=== PATIENT | male | born 1970 | race Caucasian/White ===

== ENCOUNTER 2016-10-30 17:46 | Emergency (ER) | payer BC ==
[2016-10-30 18:07] VITALS: TEMP 98.2
[2016-10-30] MEDS ORDERED: methylPREDNISolone SOD SUCCI 125 MG/2 ML VIAL IM STA (18:41)
[2016-10-30] MEDS ORDERED: FAMOTIDINE 20 MG TAB PO STA (18:41)
[2016-10-30 19:49] VITALS: BP 132/71; PULSE 72; RESP 16
--- NOTE | 2016-10-30 19:58 | ED ---
General Adult HPI - General Chief complaint: Allergic Reaction Stated complaint: Bee Sting/epi-pen/allergic Time Seen by Provider: 10/30/16 18:34 Source: patient, RN notes reviewed Mode of arrival: ambulatory Limitations: no limitations - History of Present Illness Initial comments: Patient 45-year-old male who presents emergency room today with a chief complaint of a bee sting that occurred just prior to arrival. Patient does admit to a ALLERGY to bees. He states he believes it was a hornet. He states that he did take his ibuprofen. He does admit some itching to the bottom of his foot. States he also took 2 tabs of Benadryl prior to arrival. Patient denies any other complaints or symptoms at this time. Patient denies any recent fever, chills, shortness of breath, chest pain, back pain, abdominal pain, nausea or vomiting, numbness or tingling, dysuria or hematuria, constipation or diarrhea, headaches or visual changes, or any other complaints. - Related Data Home Medications Medication Instructions Recorded Confirmed EPINEPHrine [Epipen 2-Domo] 0.3 mg IM ONCE PRN 10/30/16 10/30/16 Previous Rx's Medication Instructions Recorded EPINEPHrine [Epipen 2-Domo] 0.3 mg IM ONCE PRN #1 ml 10/30/16 Famotidine [Pepcid] 20 mg PO BID #20 tablet 10/30/16 diphenhydrAMINE [Benadryl] 1 - 2 tab PO Q6HR PRN #30 capsule 10/30/16 predniSONE 60 mg PO DAILY 5 Days 10/30/16 Allergies Allergy/AdvReac Type Severity Reaction Status Date / Time venom-honey bee Allergy Anaphylaxis Verified 10/30/16 18:07 [bee venom (honey bee)] Review of Systems ROS Statement: Those systems with pertinent positive or pertinent negative responses have been documented in the HPI. ROS Other: All systems not noted in ROS Statement are negative. Past Medical History Past Medical History: No Reported History History of Any Multi-Drug Resistant Organisms: None Reported Past Surgical History: No Surgical Hx Reported Past Psychological History: No Psychological Hx Reported Smoking Status: Never smoker Past Alcohol Use History: Occasional Past Drug Use History: None Reported General Exam - General Exam Comments Initial Comments: General: The patient is awake and alert, in no distress, and does not appear acutely ill. Eye: Pupils are equal, round and reactive to light, extra-ocular movements are intact. No nystagmus. There is normal conjunctiva bilaterally. No signs of icterus. Ears, nose, mouth and throat: There are moist mucous membranes and no oral lesions. Neck: The neck is supple, there is no tenderness or JVD. Cardiovascular: There is a regular rate and rhythm. No murmur, rub or gallop is appreciated. Respiratory: Lungs are clear to auscultation, respirations are non-labored, breath sounds are equal. No wheezes, stridor, rales, or rhonchi. Musculoskeletal: Normal ROM, no tenderness. Strength 5/5. Sensation intact. Pulses equal bilaterally 2+. Neurological: A&O x 3. CN II-XII intact, There are no obvious motor or sensory deficits. Coordination appears grossly intact. Speech is normal. Skin: Skin is warm and dry and no rashes or lesions are noted. Psychiatric: Cooperative, appropriate mood & affect, normal judgment. Limitations: no limitations Course Vital Signs 10/30/16 10/30/16 18:05 19:49 Temperature 98.2 F Pulse Rate 80 72 Respiratory 20 16 Rate Blood Pressure 132/90 132/71 O2 Sat by Pulse 98 100 Oximetry Medical Decision Making - Medical Decision Making Patient reexamined at this time after being given steroids and Pepcid here in the emergency room. Has no complaints. Feeling well. Will be discharged home given a prescription for EpiPen, and steroids. Advised to follow-up family doctor return here to the emergency room for any symptoms increase or worsen appropriate concerns. Disposition Clinical Impression: Allergic reaction to insect sting Disposition: HOME SELF-CARE Condition: Good Instructions: Anaphylaxis (ED) Additional Instructions: Please use medication as discussed. Please follow-up with family doctor in the next 2 days of symptoms have not improved. Please return to emergency room if the symptoms increase or worsen or for any other concerns. Prescriptions: diphenhydrAMINE [Benadryl] 1 - 2 tab PO Q6HR PRN #30 capsule PRN Reason: Allergic Reaction EPINEPHrine [Epipen 2-Domo] 0.3 mg IM ONCE PRN #1 ml PRN Reason: Allergic Reaction Famotidine [Pepcid] 20 mg PO BID #20 tablet predniSONE 60 mg PO DAILY 5 Days Referrals: None,Stated [Primary Care Provider] - 1-2 days Time of Disposition: 19:57
== END 2016-10-30 20:06 | disposition home or self-care (01) ==
LOC: EC 17:46
DX: T63.441A Toxic effect of venom of bees, accidental (unintentional), initial encounter (principal); Z91.030 Bee allergy status
CPT/HCPCS: 99283 ×2; 96372 ×2; J2930

== ENCOUNTER 2020-07-05 02:48 | Inpatient (IN) | payer BC ==
[2020-07-05] MEDS ORDERED: DEXAMETHASONE SOD PHOSPHATE 10 MG/ML 1 ML VIAL IV STA (02:53)
[2020-07-05] MEDS ORDERED: KETOROLAC 15 MG/ML 1 ML VIAL IVP STA (02:53)
[2020-07-05] MEDS ORDERED: ACETAMINOPHEN TAB 500 MG TAB PO STA (02:53)
[2020-07-05] MEDS ORDERED: SODIUM CHLORIDE 0.9% 1,000 ML IV STA (02:53)
--- NOTE | 2020-07-05 02:54 | ED ---
Recheck HPI - General Chief Complaint: Shortness of Breath Stated Complaint: +Covid,SOB Time Seen by Provider: 07/05/20 02:52 Source: patient Mode of arrival: ambulatory Limitations: no limitations - Related Data Home Medications Medication Instructions Recorded Confirmed EPINEPHrine [Epipen 2-Domo] 0.3 mg IM ONCE PRN 10/30/16 10/30/16 Previous Rx's Medication Instructions Recorded EPINEPHrine [Epipen 2-Domo] 0.3 mg IM ONCE PRN #1 ml 10/30/16 Famotidine [Pepcid] 20 mg PO BID #20 tablet 10/30/16 diphenhydrAMINE [Benadryl] 1 - 2 tab PO Q6HR PRN #30 capsule 10/30/16 predniSONE [Deltasone] 60 mg PO DAILY 5 Days tab 10/30/16 Allergies Allergy/AdvReac Type Severity Reaction Status Date / Time venom-honey bee Allergy Anaphylaxis Verified 07/05/20 02:53 [bee venom (honey bee)] Review of Systems ROS Statement: Those systems with pertinent positive or pertinent negative responses have been documented in the HPI. ROS Other: All systems not noted in ROS Statement are negative. Past Medical History Past Medical History: No Reported History History of Any Multi-Drug Resistant Organisms: None Reported Past Surgical History: No Surgical Hx Reported Past Psychological History: No Psychological Hx Reported Smoking Status: Never smoker Past Alcohol Use History: Occasional Past Drug Use History: None Reported General Exam Limitations: no limitations Course Vital Signs 07/05/20 07/05/20 02:49 03:21 Temperature 102.5 F H Pulse Rate 104 H Respiratory 24 25 H Rate Blood Pressure 135/98 O2 Sat by Pulse 93 L Oximetry Medical Decision Making - Lab Data Result diagrams: 07/05/20 03:07 07/05/20 03:07 Lab Results 07/05/20 07/05/20 07/05/20 Range/Units 03:07 03:07 03:07 WBC 8.9 (3.8-10.6) k/uL RBC 4.78 (4.30-5.90) m/uL Hgb 14.8 (13.0-17.5) gm/dL Hct 41.8 (39.0-53.0) % MCV 87.6 (80.0-100.0) fL MCH 31.0 (25.0-35.0) pg MCHC 35.4 (31.0-37.0) g/dL RDW 12.3 (11.5-15.5) % Plt Count 220 (150-450) k/uL MPV 8.0 Neutrophils % 88 % Lymphocytes % 6 % Monocytes % 5 % Eosinophils % 0 % Basophils % 0 % Neutrophils # 7.8 H (1.3-7.7) k/uL Lymphocytes # 0.5 L (1.0-4.8) k/uL Monocytes # 0.4 (0-1.0) k/uL Eosinophils # 0.0 (0-0.7) k/uL Basophils # 0.0 (0-0.2) k/uL Sodium 134 L (137-145) mmol/L Potassium 4.5 (3.5-5.1) mmol/L Chloride 98 (98-107) mmol/L Carbon Dioxide 23 (22-30) mmol/L Anion Gap 13 mmol/L BUN 21 H (9-20) mg/dL Creatinine 0.82 (0.66-1.25) mg/dL Est GFR (CKD-EPI)AfAm >90 (>60 ml/min/1.73 sqM) Est GFR (CKD-EPI)NonAf >90 (>60 ml/min/1.73 sqM) Glucose 198 H (74-99) mg/dL Plasma Lactic Acid [place] 1.3 (0.7-2.0) mmol/L Calcium 9.0 (8.4-10.2) mg/dL Magnesium 1.7 (1.6-2.3) mg/dL Total Bilirubin 0.5 (0.2-1.3) mg/dL AST 39 (17-59) U/L ALT 31 (4-49) U/L Alkaline Phosphatase 95 (38-126) U/L Lactate Dehydrogenase 715 H (313-618) U/L Total Protein 7.4 (6.3-8.2) g/dL Albumin 4.2 (3.5-5.0) g/dL - EKG Data -: EKG Interpreted by Me (EKG is sinus tachycardia 104 OR 152 QRS 92 QTC 439) Disposition Clinical Impression: Fever, Coronavirus infection, Pneumonia due to COVID-19 virus Disposition: ADMITTED IP TO THIS HOSP Condition: Fair Is patient prescribed a controlled substance at d/c from ED?: No Referrals: None,Stated [Primary Care Provider] - 1-2 days
--- NOTE | 2020-07-05 03:45 | XR ---
EXAM: XR Chest, 1 View CLINICAL HISTORY: ITS.REASON XR Reason: Suspected COVID-19 pneumonia TECHNIQUE: Frontal view of the chest. COMPARISON: None FINDINGS: Hardware: None. Lungs/pleura: Patchy opacities bilaterally. No pleural effusion or pneumothorax. Heart/mediastinum: Normal. No cardiomegaly. Soft tissues: Unremarkable. Bones: No acute fracture. Upper abdomen: Normal. IMPRESSION: Patchy opacities bilaterally, concerning for an infectious/inflammatory process such as Covid 19 infection.
[2020-07-05 03:46] LABS: Basophils % (A) 0 %; Eosinophils % (A) 0 %; HCT 41.8 % (39.0-53.0); HGB 14.8 gm/dL (13.0-17.5); Lymphocytes # (A) 0.5 k/uL (1.0-4.8); Lymphocytes % (A) 6 %; MCHC 35.4 g/dL (31.0-37.0); MCV 87.6 fL (80.0-100.0); Monocytes # (A) 0.4 k/uL (0-1.0); Monocytes % (A) 5 %; Neutrophils # (A) 7.8 k/uL (1.3-7.7); Neutrophils % (A) 88 %; Platelet Count 220 k/uL (150-450); RBC 4.78 m/uL (4.30-5.90); RDW 12.3 % (11.5-15.5); WBC 8.9 k/uL (3.8-10.6)
[2020-07-05 03:47] LABS: ALT 31 U/L (4-49); AST 39 U/L (17-59); African American GFR (CKD) >90 (>60 ml/min/1.73 sqM); Albumin 4.2 g/dL (3.5-5.0); Alkaline Phosphatase 95 U/L (38-126); Anion Gap 13 mmol/L; Blood Urea Nitrogen 21 mg/dL (9-20); Carbon Dioxide 23 mmol/L (22-30); Chloride 98 mmol/L (98-107); Glucose 198 mg/dL (74-99); LDH 715 U/L (313-618); Magnesium 1.7 mg/dL (1.6-2.3); Non-African American GFR(CKD) >90 (>60 ml/min/1.73 sqM); Potassium 4.5 mmol/L (3.5-5.1); Sodium 134 mmol/L (137-145); Total Bilirubin 0.5 mg/dL (0.2-1.3); Total Protein 7.4 g/dL (6.3-8.2)
[2020-07-05] MEDS ORDERED: NALOXONE 0.4 MG/ML 1 ML VIAL IV PRN (04:02)
[2020-07-05] MEDS ORDERED: MORPHINE SULFATE 4 MG/ML SYRINGE IV PRN (04:02)
[2020-07-05] MEDS ORDERED: IBUPROFEN 400 MG TAB PO PRN (04:02)
[2020-07-05] MEDS ORDERED: ONDANSETRON 4 MG/2 ML VIAL IVP PRN (04:02)
[2020-07-05 04:06] LABS: Partial Thromboplastin Time 22.9 sec (22.0-30.0); Prothrombin Time 10.4 sec (9.0-12.0)
[2020-07-05 04:43] LABS: C Reactive Protein 142.8 mg/L (<10.0)
--- NOTE | 2020-07-05 05:34 | P.HPIM ---
History of Present Illness H&P Date: 07/05/20 Chief Complaint: difficulty breathing 49 year old male with no significant past medical history Patient comes in due to difficulty breathing he was diagnosed with covert pn eumonia on Thursday at [facility] in [place]. He was started on Medrol Dosepak and was given some nebulizers in the clinic. He claims that his symptoms started back in June 22 they were of mild symptoms initially he caught the disease from his and daughter who were only sick for a few days and he got better however his symptoms lingered and advanced to more severe shortness of breath fevers chills generalized body aches and diarrhea. He denies any hemoptysis denies any chest pain denies any dizziness or syncope. He denies any recent travel hospitalization. He denies any history of blood clots Today upon arrival to the ED he was found to be hypoxic and febrile and tachycardic. Chest x-ray showed patchy opacities. Patient admitted for further care and monitoring Review of Systems Pertinent positives as noted in HPI. All other systems were reviewed and are negative Past Medical History Past Medical History: No Reported History History of Any Multi-Drug Resistant Organisms: None Reported Past Surgical History: No Surgical Hx Reported Past Psychological History: No Psychological Hx Reported Smoking Status: Never smoker Past Alcohol Use History: Occasional Past Drug Use History: None Reported Medications and Allergies Home Medications Medication Instructions Recorded Confirmed Type EPINEPHrine [Epipen 2-Domo] 0.3 mg IM ONCE PRN 10/30/16 10/30/16 History EPINEPHrine [Epipen 2-Domo] 0.3 mg IM ONCE PRN #1 ml 10/30/16 Rx Famotidine [Pepcid] 20 mg PO BID #20 tablet 10/30/16 Rx diphenhydrAMINE [Benadryl] 1 - 2 tab PO Q6HR PRN #30 capsule 10/30/16 Rx predniSONE [Deltasone] 60 mg PO DAILY 5 Days tab 10/30/16 Rx Allergies Allergy/AdvReac Type Severity Reaction Status Date / Time venom-honey bee Allergy Anaphylaxis Verified 07/05/20 02:53 [bee venom (honey bee)] Physical Exam Vitals: Vital Signs Temp Pulse Resp BP Pulse Ox 07/05/20 03:21 25 H 07/05/20 02:49 102.5 F H 104 H 24 135/98 93 L Intake and Output 07/04/20 07/04/20 07/05/20 14:59 22:59 06:59 Other: Weight 120.202 kg Constitutional: No acute distress, conversant, pleasant Eyes: Anicteric sclerae, moist conjunctiva, Pupils equal round reactive to light ENMT: NC/AT Oropharynx clear, no erythema, or exudates Neck: Supple, FROM, no masses, or JVD No carotid bruits No thyromegaly Lungs: Clear to auscultation Clear to percussion Normal respiratory effort, no accessory muscle use Cardiovascular: Heart regular in rate and rhythm, No murmurs, gallops, or rubs No peripheral edema Abdominal: Soft Nontender, no guarding, rebound or rigidity Abdomen moving with respiration Normoactive bowel sounds No hepatomegaly, No splenomegaly No palpable mass No abdominal wall hernia noted Skin: Normal temperature, tone, texture, turgor No induration No subcutaneous nodules No rash, lesions No ulcers Extremities: No digital cyanosis No clubbing Pedal pulses intact and symmetrical Radial pulses intact and symmetrical No calf tenderness Psychiatric: Alert and oriented to person, place and time Appropriate affect fair judgement Neuro Muscles Strength 5/5 in all 4 extremities Sensation to light touch grossly present throughout Cranial nerves II-XII grossly intact No focal sensory deficits Lymphatics: no palpable cervical or supraclavicular , or inguinal lymph nodes Results CBC & Chem 7: 07/05/20 03:07 07/05/20 03:07 Labs: Abnormal Lab Results - Last 24 Hours (Table) 07/05/20 07/05/20 Range/Units 03:07 03:07 Neutrophils # 7.8 H (1.3-7.7) k/uL Lymphocytes # 0.5 L (1.0-4.8) k/uL Sodium 134 L (137-145) mmol/L BUN 21 H (9-20) mg/dL Glucose 198 H (74-99) mg/dL Lactate Dehydrogenase 715 H (313-618) U/L Assessment and Plan Assessment: Acute hypoxic respiratory failure COV ID pneumonitis Plan Supportive care Gentle IV fluid hydration Supplemental oxygen as needed Decadron IV Lovenox subcu Follow-up inflammatory markers d-dimer, LDH, CRP, ferritin Pulmonary consult CODE STATUS: Full code DVT prophylaxis: Lovenox Discussed with: Patient, ER, Anticipated length of stay >than [address]: Home A total of 65 minutes was spent on the care of this complex patient more than 50% of the time was spent in counseling and care coordination.
--- NOTE | 2020-07-05 08:40 | P.PN ---
Subjective Progress Note Date: 07/05/20 Patient was examined today continue dexamethasone oxygen. D-dimer unremarkable. Objective - Vital Signs Vital signs: Vital Signs Temp 99.6 F 07/05/20 03:52 Pulse 81 07/05/20 06:47 Resp 20 07/05/20 06:47 BP 139/92 07/05/20 06:47 Pulse Ox 95 07/05/20 08:03 Intake & Output 07/04/20 07/05/20 07/05/20 18:59 06:59 18:59 Weight 120.202 kg - Labs CBC & Chem 7: 07/05/20 03:07 07/05/20 03:07 Labs: Abnormal Lab Results - Last 24 Hours (Table) 07/05/20 07/05/20 Range/Units 03:07 03:07 Neutrophils # 7.8 H (1.3-7.7) k/uL Lymphocytes # 0.5 L (1.0-4.8) k/uL Sodium 134 L (137-145) mmol/L BUN 21 H (9-20) mg/dL Glucose 198 H (74-99) mg/dL Lactate Dehydrogenase 715 H (313-618) U/L C-Reactive Protein 142.8 H (<10.0) mg/L
[2020-07-05] MEDS: ENOXAPARIN 40 MG/0.4 ML SYRINGE SQ SCH (09:40)
[2020-07-05] MEDS: DEXAMETHASONE SOD PHOSPHATE 10 MG/ML 1 ML VIAL IV SCH (09:40)
[2020-07-05] MEDS: SODIUM CHLORIDE 0.9% 1,000 ML IV SCH ×2 (09:43→16:41)
--- NOTE | 2020-07-05 12:55 | P.CNPUL ---
History of Present Illness Consult date: 07/05/20 Requesting physician: Dick Blackman Reason for consult: dyspnea, cough, hypoxemia, abnormal CXR/CT Chief complaint: Shortness of breath, cough, fatigue, hypoxia, fever History of present illness: 49-year-old white male patient who presented to the emergency department on 07/05/2020 to the emergency department with symptoms of worsening shortness of breath, fever, cough. Patient symptoms started on 06/22/2020 initially with fatigue, some mild cough, body aches, decreased appetite, nausea, and diarrhea. Patient states his and daughter are also positive for quit 19, his daughter is in the cheerleading team and was recently in a state event, and half of the cheerleading team is now COVID positive. Patient symptoms continued to get worse, on 07/02/2020 he went into walk-in clinic and was tested for COVID 19, which was positive, he was given steroids and sent home, at that time chest x- ray was starting to show pneumonia. In the emergency department on 07/05/2020 patient's pulse ox was less than 90%, he was placed on supplemental oxygen, currently on 3 L, the pulse ox of 94%, he was febrile, having increasing cough. His labs have been reviewed, showing white blood cell count of 8.9, hemoglobin of 14.8, d-dimer 0.45, sodium is 134, the rest of electrolytes are within normal limits, B1 is 21, creatinine 0.82. Lactic acid is 1.3, LDH is 715, CRP is 142. Patient was started on Decadron, prophylactic anticoagulation, he was given IV hydration, he started to feel a little better, fevers improving. Is awaiting a bed on medical surgical floor. Review of Systems All systems: negative Constitutional: Reports malaise, Denies chills, Denies fever Eyes: denies blurred vision, denies pain Ears, nose, mouth and throat: Denies headache, Denies sore throat Cardiovascular: Denies chest pain, Denies shortness of breath Respiratory: Denies cough Gastrointestinal: Denies abdominal pain, Denies diarrhea, Denies nausea, Denies vomiting Musculoskeletal: Denies myalgias Integumentary: Denies pruritus, Denies rash Neurological: Denies numbness, Denies weakness Psychiatric: Denies anxiety, Denies depression Endocrine: Denies fatigue, Denies weight change Past Medical History Past Medical History: No Reported History History of Any Multi-Drug Resistant Organisms: None Reported Past Surgical History: No Surgical Hx Reported Past Psychological History: No Psychological Hx Reported Smoking Status: Never smoker Past Alcohol Use History: Occasional Past Drug Use History: None Reported Medications and Allergies Home Medications Medication Instructions Recorded Confirmed Type Albuterol Nebulized [Ventolin 2.5 mg INHALATION RT-Q4H PRN 07/05/20 07/05/20 History Nebulized] methylPREDNISolone [Medrol Dose See Taper PO DIRECTED 07/05/20 07/05/20 History Pack] Allergies Allergy/AdvReac Type Severity Reaction Status Date / Time venom-honey bee Allergy Anaphylaxis Verified 07/05/20 06:42 [bee venom (honey bee)] Physical Exam Vitals: Vital Signs Temp Pulse Resp BP Pulse Ox 07/05/20 09:00 77 18 139/92 94 L 07/05/20 08:03 95 07/05/20 06:47 81 20 139/92 95 07/05/20 03:52 99.6 F 89 22 165/110 95 07/05/20 03:21 25 H 07/05/20 02:49 102.5 F H 104 H 24 135/98 93 L Intake and Output 07/04/20 07/05/20 07/05/20 22:59 06:59 14:59 Other: Weight 120.202 kg GENERAL EXAM: Alert, very pleasant, 49-year-old white male, 3 L of oxygen pulse ox of 95% comfortable in no apparent distress. HEAD: Normocephalic/atraumatic. EYES: Normal reaction of pupils, equal size. Conjunctiva pink, sclera white. NOSE: Clear with pink turbinates. THROAT: No erythema or exudates. NECK: No masses, no JVD, no thyroid enlargement, no adenopathy. CHEST: No chest wall deformity. Symmetrical expansion. LUNGS: Equal air entry with bilateral crackles CVS: Regular rate and rhythm, normal S1 and S2, no gallops, no murmurs, no rubs ABDOMEN: Soft, nontender. No hepatosplenomegaly, normal bowel sounds, no guarding or rigidity. EXTREMITIES: No clubbing, no edema, no cyanosis, 2+ pulses and upper and lower extremities. MUSCULOSKELETAL: Muscle strength and tone normal. SPINE: No scoliosis or deformity SKIN: No rashes CENTRAL NERVOUS SYSTEM: Alert and oriented -3. No focal deficits, tone is normal in all 4 extremities. PSYCHIATRIC: Alert and oriented -3. Appropriate affect. Intact judgment and insight. Results - Laboratory Findings CBC and BMP: 07/05/20 03:07 07/05/20 03:07 PT/INR, D-dimer PT 10.4 sec (9.0-12.0) 07/05/20 03:07 INR 1.0 (<1.2) 07/05/20 03:07 D-Dimer 0.45 mg/L FEU (<0.60) 07/05/20 04:44 Abnormal lab findings: Abnormal Labs 07/05/20 07/05/20 03:07 03:07 Neutrophils # 7.8 H Lymphocytes # 0.5 L Sodium 134 L BUN 21 H Glucose 198 H Lactate Dehydrogenase 715 H C-Reactive Protein 142.8 H - Diagnostic Findings Chest x-ray: report reviewed, image reviewed Assessment and Plan Plan: Assessment: #1. Acute hypoxic respiratory failure related to acute COVID 19 pneumonia, with initial onset of symptoms at 06/22/2020, and positive outpatient Covid test on 07/02/2020 in the walk-in clinic, patient is out of the window for Remdesivir treatment #2. Fever, cough, hypoxia, shortness of breath, nausea and vomiting and diarrhea related to the above #3. Increased inflammatory markers related to the above #4. Never smoker Plan: Continue Decadron, patient is out of the window for Remdesivir, we will give the patient a unit of convalescent plasma if available, continue standard supportive treatment, continue IV hydration prophylactic dose Lovenox, continue to closely follow his clinical course, and monitor for any signs of deterioration or worsening dyspnea or hypoxia I performed a history & physical examination of the patient and discussed their management with my nurse practitioner, Zenia Snyder. I reviewed the nurse practitioner's note and agree with the documented findings and plan of care. Lung sounds are positive for bilateral crackles. The findings and the impression was discussed with the patient. I attest to the documentation by the nurse practitioner. Time with Patient: Greater than 30
[2020-07-06] MEDS: SODIUM CHLORIDE 0.9% 1,000 ML IV SCH ×2 (01:02→07:26)
[2020-07-06] MEDS: ACETAMINOPHEN TAB 325 MG TAB PO PRN ×2 (05:08→21:45)
[2020-07-06 06:59] LABS: Basophils % (A) 0 %; Eosinophils % (A) 0 %; HCT 37.1 % (39.0-53.0); HGB 12.7 gm/dL (13.0-17.5); Lymphocytes # (A) 0.5 k/uL (1.0-4.8); Lymphocytes % (A) 6 %; MCH 30.7 pg (25.0-35.0); MCHC 34.3 g/dL (31.0-37.0); MCV 89.3 fL (80.0-100.0); Mean Platelet Volume 8.1; Monocytes # (A) 0.5 k/uL (0-1.0); Monocytes % (A) 5 %; Neutrophils # (A) 8.2 k/uL (1.3-7.7); Neutrophils % (A) 88 %; Platelet Count 223 k/uL (150-450); RBC 4.15 m/uL (4.30-5.90); RDW 12.5 % (11.5-15.5); WBC 9.3 k/uL (3.8-10.6)
[2020-07-06 07:04] LABS: ALT 23 U/L (4-49); AST 30 U/L (17-59); African American GFR (CKD) >90 (>60 ml/min/1.73 sqM); Albumin 3.4 g/dL (3.5-5.0); Alkaline Phosphatase 82 U/L (38-126); Anion Gap 7 mmol/L; Blood Urea Nitrogen 23 mg/dL (9-20); Calcium 8.5 mg/dL (8.4-10.2); Carbon Dioxide 26 mmol/L (22-30); Chloride 103 mmol/L (98-107); Glucose 187 mg/dL (74-99); Magnesium 1.9 mg/dL (1.6-2.3); Non-African American GFR(CKD) >90 (>60 ml/min/1.73 sqM); Phosphorus 2.9 mg/dL (2.5-4.5); Potassium 4.6 mmol/L (3.5-5.1); Sodium 136 mmol/L (137-145); Total Bilirubin 0.4 mg/dL (0.2-1.3); Total Protein 6.4 g/dL (6.3-8.2)
[2020-07-06] MEDS: ENOXAPARIN 40 MG/0.4 ML SYRINGE SQ SCH (07:32)
[2020-07-06] MEDS: DEXAMETHASONE SOD PHOSPHATE 10 MG/ML 1 ML VIAL IV SCH (07:32)
[2020-07-06 08:48] LABS: C Reactive Protein 139.7 mg/L (<10.0)
[2020-07-06 10:09] VITALS: BMI 34.9
--- NOTE | 2020-07-06 10:57 | P.PN ---
Subjective Progress Note Date: 07/06/20 Principal diagnosis: Shortness of breath, COVID 19 pneumonia 49-year-old white male patient who presented to the emergency department on 07/05/2020 to the emergency department with symptoms of worsening shortness of breath, fever, cough. Patient symptoms started on 06/22/2020 initially with fatigue, some mild cough, body aches, decreased appetite, nausea, and diarrhea. Patient states his and daughter are also positive for quit 19, his daughter is in the cheerleading team and was recently in a state event, and half of the cheerleading team is now COVID positive. Patient symptoms continued to get worse, on 07/02/2020 he went into walk-in clinic and was tested for COVID 19, which was positive, he was given steroids and sent home, at that time chest x- ray was starting to show pneumonia. In the emergency department on 07/05/2020 patient's pulse ox was less than 90%, he was placed on supplemental oxygen, currently on 3 L, the pulse ox of 94%, he was febrile, having increasing cough. His labs have been reviewed, showing white blood cell count of 8.9, hemoglobin of 14.8, d-dimer 0.45, sodium is 134, the rest of electrolytes are within normal limits, B1 is 21, creatinine 0.82. Lactic acid is 1.3, LDH is 715, CRP is 142. Patient was started on Decadron, prophylactic anticoagulation, he was given IV hydration, he started to feel a little better, fevers improving. Is awaiting a bed on medical surgical floor. On 07/16/2020 patient seen in follow-up on medical floor, he is currently down to 2 L of oxygen pulse ox is 95%, feeling better, still coughing, however had a better night, he continues on Decadron, he does have a fever this morning, he is on prophylactic Lovenox, he was outside the window for Remdesivir, he is on point and was seen at 100 ML per hour, he states he still has significant exertional dyspnea, he takes him a while to recover from just walking to the bathroom. But overall improving, Objective - Vital Signs Vital signs: Vital Signs Temp 100.1 F H 07/06/20 07:19 Pulse 83 07/06/20 07:19 Resp 13 07/06/20 07:19 BP 118/73 07/06/20 07:19 Pulse Ox 95 07/06/20 07:19 Intake & Output 07/05/20 07/06/20 07/06/20 18:59 06:59 18:59 Weight 120.202 kg 120.202 kg Other: Voiding Method Toilet # Voids 1 2 1 - Exam GENERAL EXAM: Alert, very pleasant, 49-year-old white male, 2 L of oxygen pulse ox of 92% comfortable in no apparent distress. HEAD: Normocephalic/atraumatic. EYES: Normal reaction of pupils, equal size. Conjunctiva pink, sclera white. NOSE: Clear with pink turbinates. THROAT: No erythema or exudates. NECK: No masses, no JVD, no thyroid enlargement, no adenopathy. CHEST: No chest wall deformity. Symmetrical expansion. LUNGS: Equal air entry with bilateral crackles CVS: Regular rate and rhythm, normal S1 and S2, no gallops, no murmurs, no rubs ABDOMEN: Soft, nontender. No hepatosplenomegaly, normal bowel sounds, no guarding or rigidity. EXTREMITIES: No clubbing, no edema, no cyanosis, 2+ pulses and upper and lower extremities. MUSCULOSKELETAL: Muscle strength and tone normal. SPINE: No scoliosis or deformity SKIN: No rashes CENTRAL NERVOUS SYSTEM: Alert and oriented -3. No focal deficits, tone is normal in all 4 extremities. PSYCHIATRIC: Alert and oriented -3. Appropriate affect. Intact judgment and insight. - Labs CBC & Chem 7: 07/06/20 05:58 07/06/20 05:58 Labs: Abnormal Lab Results - Last 24 Hours (Table) 07/06/20 07/06/20 07/06/20 Range/Units 05:58 05:58 05:58 RBC 4.15 L (4.30-5.90) m/uL Hgb 12.7 L (13.0-17.5) gm/dL Hct 37.1 L (39.0-53.0) % Neutrophils # 8.2 H (1.3-7.7) k/uL Lymphocytes # 0.5 L (1.0-4.8) k/uL Sodium 136 L (137-145) mmol/L BUN 23 H (9-20) mg/dL Glucose 187 H (74-99) mg/dL Lactate Dehydrogenase 718 H (313-618) U/L C-Reactive Protein 139.7 H (<10.0) mg/L Albumin 3.4 L (3.5-5.0) g/dL Assessment and Plan Plan: Assessment: #1. Acute hypoxic respiratory failure related to acute COVID 19 pneumonia, with initial onset of symptoms at 06/22/2020, and positive outpatient Covid test on 07/02/2020 in the walk-in clinic, patient is out of the window for Remdesivir treatment #2. Fever, cough, hypoxia, shortness of breath, nausea and vomiting and diarrhea related to the above #3. Increased inflammatory markers related to the above #4. Never smoker Plan: Patient is doing well, continue current medical treatment, wean FiO2, possible discharge in next 24 hours. I performed a history & physical examination of the patient and discussed their management with my nurse practitioner, Zenia Snyder. I reviewed the nurse practitioner's note and agree with the documented findings and plan of care. Lung sounds are positive for bilateral crackles. The findings and the impression was discussed with the patient. I attest to the documentation by the nurse practitioner. Time with Patient: Less than 30
--- NOTE | 2020-07-06 13:00 | P.PN ---
Subjective Progress Note Date: 07/06/20 Patient is feeling fairly well today. He is still short of breath when he get up to the bathroom. No acute events overnight noted by nursing staff. Objective - Vital Signs Vital signs: Vital Signs Temp 99 F 07/06/20 08:30 Pulse 78 07/06/20 08:30 Resp 16 07/06/20 08:30 BP 118/73 07/06/20 07:19 Pulse Ox 92 L 07/06/20 08:30 Intake & Output 07/05/20 07/06/20 07/06/20 18:59 06:59 18:59 Weight 120.202 kg 120.202 kg Other: Voiding Method Toilet # Voids 1 2 1 - Exam General: The patient is awake and alert, in no distress Eye: there is normal conjunctiva bilaterally. Neck: The neck is supple, there is no JVD. Cardiovascular: Normal S1-S2, no S3-S4, no murmurs. Respiratory: Lungs clear to auscultation bilaterally Gastrointestinal: Abdomen is soft, nontender Musculoskeletal: There is no pedal edema. Neurological:. Speech is normal. Skin: Skin is warm and dry - Labs CBC & Chem 7: 07/06/20 05:58 07/06/20 05:58 Labs: Abnormal Lab Results - Last 24 Hours (Table) 07/06/20 07/06/20 07/06/20 Range/Units 05:58 05:58 05:58 RBC 4.15 L (4.30-5.90) m/uL Hgb 12.7 L (13.0-17.5) gm/dL Hct 37.1 L (39.0-53.0) % Neutrophils # 8.2 H (1.3-7.7) k/uL Lymphocytes # 0.5 L (1.0-4.8) k/uL Sodium 136 L (137-145) mmol/L BUN 23 H (9-20) mg/dL Glucose 187 H (74-99) mg/dL Lactate Dehydrogenase 718 H (313-618) U/L C-Reactive Protein 139.7 H (<10.0) mg/L Albumin 3.4 L (3.5-5.0) g/dL Assessment and Plan Assessment: This is a 49-year-old male who presented to the emergency room with worsening shortness of breath after being diagnosed with COVID-19 at an outside urgent care. Patient was evaluated in the ER and admitted to the hospital for further management of his medical problems noted below. 1. COVID-19 pneumonia, seen and evaluated by pulmonology. Started on Decadron 6 mg daily. Outside the window for Remdesivir 2. Acute hypoxic respiratory failure, weaning off O2 as tolerated for O2 sats greater than 90%. 3. DVT prophylaxis with Lovenox Continue supportive care. Repeat inflammatory markers in the morning. Despite discharge home tomorrow.
--- NOTE | 2020-07-07 08:28 | XR ---
EXAMINATION TYPE: XR chest 1V portable DATE OF EXAM: 07/07/2020 COMPARISON: 4021 INDICATION: covid, cough TECHNIQUE: Single frontal view of the chest is obtained. FINDINGS: The heart size is largest. The pulmonary vasculature is normal. Diffuse increased lung markings are scattered bilaterally. Findings are worsening over the interval IMPRESSION: 1. Worsening bilateral diffuse lung infiltrates are nonspecific but can be compatible with atypical p neumonia.
[2020-07-07] MEDS: DEXAMETHASONE SOD PHOSPHATE 10 MG/ML 1 ML VIAL IV SCH (10:12)
[2020-07-07] MEDS: ENOXAPARIN 40 MG/0.4 ML SYRINGE SQ SCH (10:13)
--- NOTE | 2020-07-07 10:53 | P.PN ---
Subjective Progress Note Date: 07/07/20 Principal diagnosis: CoVID 19 pneumonia 49-year-old white male patient who presented to the emergency department on 07/05/2020 to the emergency department with symptoms of worsening shortness of breath, fever, cough. Patient symptoms started on 06/22/2020 initially with fatigue, some mild cough, body aches, decreased appetite, nausea, and diarrhea. Patient states his and daughter are also positive for quit 19, his daughter is in the cheerleading team and was recently in a state event, and half of the cheerleading team is now COVID positive. Patient symptoms continued to get worse, on 07/02/2020 he went into walk-in clinic and was tested for COVID 19, which was positive, he was given steroids and sent home, at that time chest x- ray was starting to show pneumonia. In the emergency department on 07/05/2020 patient's pulse ox was less than 90%, he was placed on supplemental oxygen, currently on 3 L, the pulse ox of 94%, he was febrile, having increasing cough. His labs have been reviewed, showing white blood cell count of 8.9, hemoglobin of 14.8, d-dimer 0.45, sodium is 134, the rest of electrolytes are within normal limits, B1 is 21, creatinine 0.82. Lactic acid is 1.3, LDH is 715, CRP is 142. Patient was started on Decadron, prophylactic anticoagulation, he was given IV hydration, he started to feel a little better, fevers improving. Is awaiting a bed on medical surgical floor. On 07/16/2020 patient seen in follow-up on medical floor, he is currently down to 2 L of oxygen pulse ox is 95%, feeling better, still coughing, however had a better night, he continues on Decadron, he does have a fever this morning, he is on prophylactic Lovenox, he was outside the window for Remdesivir, he is on point and was seen at 100 ML per hour, he states he still has significant exertional dyspnea, he takes him a while to recover from just walking to the bathroom. But overall improving, The patient is seen today 07/07/2017 in follow-up on the regular medical floor. He is currently sitting up in bed. Awake and alert in no acute distress. Breathing a bit better today compared to yesterday. Continues with a tight nonproductive cough. Dyspnea on exertion. Maintaining O2 saturations in the 90s on 3 L/m per nasal cannula. 83% on room air. Chest x-ray does show some worsening bilateral diffuse lung infiltrates. He did receive 1 unit of con valescent plasma remains on dexamethasone, Lovenox. Objective - Vital Signs Vital signs: Vital Signs Temp 98.5 F 07/07/20 10:28 Pulse 85 07/07/20 10:28 Resp 18 07/07/20 10:40 BP 143/91 07/07/20 07:33 Pulse Ox 90 L 07/07/20 10:40 Intake & Output 07/06/20 07/07/20 07/07/20 18:59 06:59 18:59 Intake Total 210 Balance 210 Weight 120.202 kg Intake: Blood Product 210 Ffp Pher Conval Covid19 210 Acda 2 Unit [id number] Other: Voiding Method Toilet # Voids 1 1 # Bowel Movements 1 - Exam GENERAL EXAM: Alert, active, 49-year-old gentleman, on 3 L nasal cannula, comfortable in no apparent distress. HEAD: Normocephalic. EYES: Normal reaction of pupils, equal size. NOSE: Clear with pink turbinates. THROAT: No erythema or exudates. NECK: No masses, no JVD. CHEST: No chest wall deformity. LUNGS: Equal air entry with bibasilar crackles. CVS: S1 and S2 normal with no audible murmur, regular rhythm. ABDOMEN: No hepatosplenomegaly, normal bowel sounds, no guarding or rigidity. SPINE: No scoliosis or deformity SKIN: No rashes CENTRAL NERVOUS SYSTEM: No focal deficits, tone is normal in all 4 extremities. EXTREMITIES: There is no peripheral edema. No clubbing, no cyanosis. Peripheral pulses are intact. - Labs CBC & Chem 7: 07/06/20 05:58 07/06/20 05:58 Assessment and Plan Assessment: 1 Acute hypoxic respiratory failure related to acute COVID 19 pneumonia, with initial onset of symptoms at 06/22/2020, and positive outpatient Covid test on 07/02/2020 in the walk-in clinic, patient is out of the window for Remdesivir treatment. The patient did receive convalescent plasma. 2 Fever, cough, hypoxia, shortness of breath, nausea and vomiting and diarrhea related to the above 3 Increased inflammatory markers related to the above 4 Never smoker Plan: The patient was seen and evaluated by Dr. Cruz Chest x-ray reviewed Still on 3 L nasal cannula Titrate down as tolerated Received convalescent plasma Continue Lovenox, Decadron Add vitamin supplements We will continue to follow I, the cosigning physician, performed a history & physical examination of the patient. Lungs sounds with bibasilar crackles. Maintaining good O2 saturations in the 90s on 3 L/m per nasal cannula. I discussed the assessment and plan of care with my nurse practitioner, Amanda Slaughter. I attest to the above note as dictated by her.
--- NOTE | 2020-07-07 11:36 | P.PN ---
Subjective Patient had an episode of shortness of breath last night and was hypoxic requiring oxygen. His oxygen was checked this morning on room air with amb ulation and it dropped to low 80s and heart rate up to 100. He got back in bed and O2 sats ration was around 88% on room air. He still requiring oxygen Objective - Vital Signs Vital signs: Vital Signs Temp 98.5 F 07/07/20 10:28 Pulse 85 07/07/20 10:28 Resp 18 07/07/20 10:40 BP 143/91 07/07/20 07:33 Pulse Ox 90 L 07/07/20 10:40 Intake & Output 07/06/20 07/07/20 07/07/20 18:59 06:59 18:59 Intake Total 210 Balance 210 Weight 120.202 kg Intake: Blood Product 210 Ffp Pher Conval Covid19 210 Acda 2 Unit [id number] Other: Voiding Method Toilet # Voids 1 1 # Bowel Movements 1 - Exam General: The patient is awake and alert, in no distress Eye: there is normal conjunctiva bilaterally. Neck: The neck is supple, there is no JVD. Cardiovascular: Normal S1-S2, no S3-S4, no murmurs. Respiratory: Lungs clear to auscultation bilaterally Gastrointestinal: Abdomen is soft, nontender Musculoskeletal: There is no pedal edema. Neurological:. Speech is normal. Skin: Skin is warm and dry - Labs CBC & Chem 7: 07/06/20 05:58 07/06/20 05:58 Assessment and Plan Assessment: This is a 49-year-old male who presented to the emergency room with worsening shortness of breath after being diagnosed with COVID-19 at an outside urgent care. Patient was evaluated in the ER and admitted to the hospital for further management of his medical problems noted below. 1. COVID-19 pneumonia, seen and evaluated by pulmonology. Started on Decadron 6 mg daily. Outside the window for Remdesivir 2. Acute hypoxic respiratory failure, weaning off O2 as tolerated for O2 sats greater than 90%. 3. DVT prophylaxis with Lovenox Continue supportive care. Repeat inflammatory markers showed no significant improvement. Ex today slightly worse. We will continue to monitor. Patient is not stable for discharge.
[2020-07-07 11:37] LABS: C Reactive Protein 82.1 mg/L (<10.0)
[2020-07-07] MEDS: ZINC SULFATE 220 MG CAP PO SCH (12:13)
[2020-07-07] MEDS: CHOLECALCIFEROL 25 MCG (1000 IU) TABLET PO SCH (12:14)
[2020-07-07] MEDS: ASCORBIC ACID 500 MG TAB PO SCH (12:14)
[2020-07-08] MEDS: DEXAMETHASONE SOD PHOSPHATE 10 MG/ML 1 ML VIAL IV SCH (09:12)
[2020-07-08] MEDS: ENOXAPARIN 40 MG/0.4 ML SYRINGE SQ SCH (09:12)
[2020-07-08] MEDS: ZINC SULFATE 220 MG CAP PO SCH (09:12)
[2020-07-08] MEDS: ASCORBIC ACID 500 MG TAB PO SCH (09:12)
[2020-07-08] MEDS: CHOLECALCIFEROL 25 MCG (1000 IU) TABLET PO SCH (09:12)
--- NOTE | 2020-07-08 10:29 | XR ---
EXAMINATION TYPE: XR chest 1V DATE OF EXAM: 07/08/2020 COMPARISON: 07/07/2020 INDICATION: Follow-up previous abnormal TECHNIQUE: Single frontal view of the chest is obtained. FINDINGS: The heart size is normal. The pulmonary vasculature is normal. Patchy bilateral lung infiltrates are present. Findings are nonspecific but can be compatible with at ypical pneumonia in the proper clinical setting. Findings appear stable over the interval. IMPRESSION: 1. Stable patchy bilateral lung infiltrates are nonspecific. Correlate for atypical pneumonia.
--- NOTE | 2020-07-08 11:08 | P.PN ---
Subjective Progress Note Date: 07/08/20 Patient is doing very well today. He denies any shortness of breath. His oxygen requirement improved significantly and he is currently on 2-3 L of oxygen via nasal cannula. Objective - Vital Signs Vital signs: Vital Signs Temp 97.0 F L 07/08/20 09:09 Pulse 63 07/08/20 08:55 Resp 18 07/08/20 08:55 BP 123/83 07/08/20 08:55 Pulse Ox 87 L 07/08/20 09:53 Intake & Output 07/07/20 07/08/20 07/08/20 18:59 06:59 18:59 Intake Total 950 290 Balance 950 290 Intake: Oral 950 290 Other: Voiding Method Toilet # Voids 2 2 - Exam General: The patient is awake and alert, in no distress Eye: there is normal conjunctiva bilaterally. Neck: The neck is supple, there is no JVD. Cardiovascular: Normal S1-S2, no S3-S4, no murmurs. Respiratory: Lungs clear to auscultation bilaterally Gastrointestinal: Abdomen is soft, nontender Musculoskeletal: There is no pedal edema. Neurological:. Speech is normal. Skin: Skin is warm and dry - Labs CBC & Chem 7: 07/06/20 05:58 07/06/20 05:58 Labs: Abnormal Lab Results - Last 24 Hours (Table) 07/07/20 07/08/20 Range/Units 09:58 09:16 D-Dimer 1.31 H (<0.60) mg/L FEU Lactate Dehydrogenase 731 H (313-618) U/L C-Reactive Protein 82.1 H (<10.0) mg/L Assessment and Plan Assessment: This is a 49-year-old male who presented to the emergency room with worsening shortness of breath after being diagnosed with COVID-19 at an outside urgent care. Patient was evaluated in the ER and admitted to the hospital for further management of his medical problems noted below. 1. COVID-19 pneumonia, seen and evaluated by pulmonology. Started on Decadron 6 mg daily. Outside the window for Remdesivir. Continue vitamin supplement 2. Acute hypoxic respiratory failure, weaning off O2 as tolerated for O2 sats greater than 90%. 3. DVT prophylaxis with Lovenox Continue supportive care. O2 sats on room air this morning dropped to 85%. G reater than 90% on 2 L of oxygen via nasal cannula. We' do not have a casey saw operator today on Thursday to set up home O2. Plan for discharge tomorrow.
--- NOTE | 2020-07-08 12:57 | P.PN ---
Subjective Progress Note Date: 07/08/20 Principal diagnosis: Shortness of breath, COVID 19 pneumonia 49-year-old white male patient who presented to the emergency department on 07/05/2020 to the emergency department with symptoms of worsening shortness of breath, fever, cough. Patient symptoms started on 06/22/2020 initially with fatigue, some mild cough, body aches, decreased appetite, nausea, and diarrhea. Patient states his and daughter are also positive for quit 19, his daughter is in the cheerleading team and was recently in a state event, and half of the cheerleading team is now COVID positive. Patient symptoms continued to get worse, on 07/02/2020 he went into walk-in clinic and was tested for COVID 19, which was positive, he was given steroids and sent home, at that time chest x- ray was starting to show pneumonia. In the emergency department on 07/05/2020 patient's pulse ox was less than 90%, he was placed on supplemental oxygen, currently on 3 L, the pulse ox of 94%, he was febrile, having increasing cough. His labs have been reviewed, showing white blood cell count of 8.9, hemoglobin of 14.8, d-dimer 0.45, sodium is 134, the rest of electrolytes are within normal limits, B1 is 21, creatinine 0.82. Lactic acid is 1.3, LDH is 715, CRP is 142. Patient was started on Decadron, prophylactic anticoagulation, he was given IV hydration, he started to feel a little better, fevers improving. Is awaiting a bed on medical surgical floor. On 07/16/2020 patient seen in follow-up on medical floor, he is currently down to 2 L of oxygen pulse ox is 95%, feeling better, still coughing, however had a better night, he continues on Decadron, he does have a fever this morning, he is on prophylactic Lovenox, he was outside the window for Remdesivir, he is on point and was seen at 100 ML per hour, he states he still has significant exertional dyspnea, he takes him a while to recover from just walking to the bathroom. But overall improving, On 07/08/2020 patient seen in follow-up on medical floor, he is currently on 2 L of oxygen, earlier he was on 25 L of oxygen satting 95%, subsequently his pulse ox dropped to 87% on 2 L and his FiO2 was increased back up to 3 L, today's chest x-ray shows stable patchy bilateral lung infiltrates. Patient still coughing, but overall feeling better, breathing easier, and he states that he feels like his cough is improving, his had no acute events overnight, his had no fever or chills. Today's labs have been reviewed, d-dimer is 1.31, no new LDH or CRP. Tolerating oral intake. He was outside the window for Remdesivir, he received 1 unit of convalescent plasma, and remains on Decadron and prophylactic Lovenox. Objective - Vital Signs Vital signs: Vital Signs Temp 97.0 F L 07/08/20 09:09 Pulse 63 07/08/20 08:55 Resp 18 07/08/20 08:55 BP 123/83 07/08/20 08:55 Pulse Ox 87 L 07/08/20 09:53 Intake & Output 07/07/20 07/08/20 07/08/20 18:59 06:59 18:59 Intake Total 950 290 Balance 950 290 Intake: Oral 950 290 Other: Voiding Method Toilet # Voids 2 2 - Exam GENERAL EXAM: Alert, very pleasant, 49-year-old white male, 2 L of oxygen pulse ox of 87% comfortable in no apparent distress. HEAD: Normocephalic/atraumatic. EYES: Normal reaction of pupils, equal size. Conjunctiva pink, sclera white. NOSE: Clear with pink turbinates. THROAT: No erythema or exudates. NECK: No masses, no JVD, no thyroid enlargement, no adenopathy. CHEST: No chest wall deformity. Symmetrical expansion. LUNGS: Equal air entry with bilateral crackles CVS: Regular rate and rhythm, normal S1 and S2, no gallops, no murmurs, no rubs ABDOMEN: Soft, nontender. No hepatosplenomegaly, normal bowel sounds, no guarding or rigidity. EXTREMITIES: No clubbing, no edema, no cyanosis, 2+ pulses and upper and lower extremities. MUSCULOSKELETAL: Muscle strength and tone normal. SPINE: No scoliosis or deformity SKIN: No rashes CENTRAL NERVOUS SYSTEM: Alert and oriented -3. No focal deficits, tone is normal in all 4 extremities. PSYCHIATRIC: Alert and oriented -3. Appropriate affect. Intact judgment and insight. - Labs CBC & Chem 7: 04/09/21 05:58 07/06/20 05:58 Labs: Abnormal Lab Results - Last 24 Hours (Table) 07/08/20 Range/Units 09:16 D-Dimer 1.31 H (<0.60) mg/L FEU Assessment and Plan Plan: Assessment: #1. Acute hypoxic respiratory failure related to acute COVID 19 pneumonia, with initial onset of symptoms at 06/22/2020, and positive outpatient Covid test on 07/02/2020 in the walk-in clinic, patient is out of the window for Remdesivir treatment. Status post transfusion of one unit of convalescent plasma #2. Fever, cough, hypoxia, shortness of breath, nausea and vomiting and diarrhea related to the above #3. Increased inflammatory markers related to the above #4. Never smoker Plan: he continues to do well, wean FiO2, likely will require home oxygen to go home on, no acute events overnight, today's labs have been noted, chest x-ray shows stable bilateral infiltrates, clinically overall he is improving, increase activity as tolerated, discharge home in the next 24 hours. I performed a history & physical examination of the patient and discussed their management with my nurse practitioner, Zenia Snyder. I reviewed the nurse pr actitioner's note and agree with the documented findings and plan of care. Lung sounds are positive for bilateral crackles. The findings and the impression was discussed with the patient. I attest to the documentation by the nurse practitioner. Time with Patient: Less than 30
[2020-07-09 05:36] VITALS: TEMP 97.8
[2020-07-09] MEDS: ZINC SULFATE 220 MG CAP PO SCH (07:51)
[2020-07-09] MEDS: DEXAMETHASONE SOD PHOSPHATE 10 MG/ML 1 ML VIAL IV SCH (07:51)
[2020-07-09] MEDS: ENOXAPARIN 40 MG/0.4 ML SYRINGE SQ SCH (07:51)
[2020-07-09] MEDS: CHOLECALCIFEROL 25 MCG (1000 IU) TABLET PO SCH (07:51)
[2020-07-09] MEDS: ASCORBIC ACID 500 MG TAB PO SCH (07:51)
[2020-07-09 08:14] VITALS: BP 132/91; PULSE 63; RESP 18
--- NOTE | 2020-07-09 09:03 | P.DS ---
Providers Date of admission: 07/05/20 04:04 Expected date of discharge: 07/09/20 Attending physician: Rodolfo Weathers MD Consults: 07/05/20 04:03 Consult Physician Routine Consulting Provider: Logan Anderson Consult Reason/Comments: covid Do you want consulting provider notified?: Yes Primary care physician: Stated None Hospital Course: This is a 49-year-old male who presented to the emergency room with worsening shortness of breath after being diagnosed with COVID-19 at an outside urgent care. Patient was evaluated in the ER and admitted to the hospital for further management of his medical problems noted below. 1. COVID-19 pneumonia, seen and evaluated by pulmonology. Started on Decadron 6 mg daily. Outside the window for Remdesivir. Continue vitamin supplement 2. Acute hypoxic respiratory failure Patient overall condition improved significantly throughout his hospital stay. We will finish 10 days course of Decadron. He was still requiring 2 L of oxygen to maintain O2 sats greater than 90%. He is completely asymptomatic. Patient will be discharged home with home O2 2 L with plan to follow-up with pulmonology in the office in the next 2 weeks for 6 minutes walking test. Patient Condition at Discharge: Fair Plan - Discharge Summary Discharge Rx Participant: No New Discharge Prescriptions: New Zinc Sulfate [Orazinc] 220 mg PO DAILY #30 cap Ascorbic Acid [Vitamin C] 1,000 mg PO DAILY #60 tab Cholecalciferol [Vitamin D3 (25 Mcg = 1000 Iu)] 50 mcg PO DAILY #60 tablet Dexamethasone [Decadron] 6 mg PO DAILY #4 tablet Continue Albuterol Nebulized [Ventolin Nebulized] 2.5 mg INHALATION RT-Q4H PRN PRN Reason: Shortness Of Breath Discontinued methylPREDNISolone [Medrol Dose Pack] See Taper PO DIRECTED Discharge Medication List Albuterol Nebulized [Ventolin Nebulized] 2.5 mg INHALATION RT-Q4H PRN 07/05/20 [History] Ascorbic Acid [Vitamin C] 1,000 mg PO DAILY #60 tab 07/09/20 [Rx] Cholecalciferol [Vitamin D3 (25 Mcg = 1000 Iu)] 50 mcg PO DAILY #60 tablet 07/09/20 [Rx] Dexamethasone [Decadron] 6 mg PO DAILY #4 tablet 07/09/20 [Rx] Zinc Sulfate [Orazinc] 220 mg PO DAILY #30 cap 07/09/20 [Rx] Follow up Appointment(s)/Referral(s): None,Stated [Primary Care Provider] - 1-2 days Logan Anderson MD [STAFF PHYSICIAN] - 1 Week Discharge Disposition: HOME SELF-CARE
--- NOTE | 2020-07-09 09:14 | P.PN ---
Subjective Progress Note Date: 07/09/20 49-year-old white male patient who presented to the emergency department on 07/05/2020 to the emergency department with symptoms of worsening shortness of breath, fever, cough. Patient symptoms started on 06/22/2020 initially with fatigue, some mild cough, body aches, decreased appetite, nausea, and diarrhea. Patient states his and daughter are also positive for quit 19, his daughter is in the cheerleading team and was recently in a state event, and half of the cheerleading team is now COVID positive. Patient symptoms continued to get worse, on 07/02/2020 he went into walk-in clinic and was tested for COVID 19, which was positive, he was given steroids and sent home, at that time chest x- ray was starting to show pneumonia. In the emergency department on 07/05/2020 patient's pulse ox was less than 90%, he was placed on supplemental oxygen, currently on 3 L, the pulse ox of 94%, he was febrile, having increasing cough. His labs have been reviewed, showing white blood cell count of 8.9, hemoglobin of 14.8, d-dimer 0.45, sodium is 134, the rest of electrolytes are within normal limits, B1 is 21, creatinine 0.82. Lactic acid is 1.3, LDH is 715, CRP is 142. Patient was started on Decadron, prophylactic anticoagulation, he was given IV hydration, he started to feel a little better, fevers improving. Is awaiting a bed on medical surgical floor. On 07/16/2020 patient seen in follow-up on medical floor, he is currently down to 2 L of oxygen pulse ox is 95%, feeling better, still coughing, however had a better night, he continues on Decadron, he does have a fever this morning, he is on prophylactic Lovenox, he was outside the window for Remdesivir, he is on point and was seen at 100 ML per hour, he states he still has significant exertional dyspnea, he takes him a while to recover from just walking to the bathroom. But overall improving, On 07/08/2020 patient seen in follow-up on medical floor, he is currently on 2 L of oxygen, earlier he was on 2 L of oxygen satting 95%, subsequently his pulse ox dropped to 87% on 2 L and his FiO2 was increased back up to 3 L, today's chest x-ray shows stable patchy bilateral lung infiltrates. Patient still coughing, but overall feeling better, breathing easier, and he states that he feels like his cough is improving, his had no acute events overnight, his had no fever or chills. Today's labs have been reviewed, d-dimer is 1.31, no new LDH or CRP. Tolerating oral intake. He was outside the window for Remdesivir, he received 1 unit of convalescent plasma, and remains on Decadron and prophylactic Lovenox. On 07/09/2020 the patient is being seen for a follow-up in regards to COVID 19 related to pneumonia. The patient received a unit of convalescent plasma and the patient is being treated with a combination of Decadron on Lovenox. He was out of the window for Remdesivir treatment . On 07/09/2020 the patient is being seen for a follow-up. The patient was out of the window for Remdesivir. The patient was treated with Decadron and the patient was given a unit of convalescent plasma. The chest x-rays showing diffuse patchy but the pulmonary infiltrates most of the peripheral distribution this is typical of an underlying COVID related pneumonia. Objective - Vital Signs Vital signs: Vital Signs Temp 97.8 F 07/09/20 08:00 Pulse 63 07/09/20 08:00 Resp 18 07/09/20 08:00 BP 132/91 07/09/20 08:00 Pulse Ox 92 L 07/09/20 08:00 Intake & Output 07/08/20 07/09/20 07/09/20 18:59 06:59 18:59 Intake Total 480 Balance 480 Intake: Oral 480 Other: Voiding Method Toilet Toilet - Exam GENERAL EXAM: Alert, very pleasant, 49-year-old white male, 2 L of oxygen pulse ox of 92% comfortable in no apparent distress. HEAD: Normocephalic/atraumatic. EYES: Normal reaction of pupils, equal size. Conjunctiva pink, sclera white. NOSE: Clear with pink turbinates. THROAT: No erythema or exudates. NECK: No masses, no JVD, no thyroid enlargement, no adenopathy. CHEST: No chest wall deformity. Symmetrical expansion. LUNGS: Equal air entry with bilateral crackles CVS: Regular rate and rhythm, normal S1 and S2, no gallops, no murmurs, no rubs ABDOMEN: Soft, nontender. No hepatosplenomegaly, normal bowel sounds, no guarding or rigidity. EXTREMITIES: No clubbing, no edema, no cyanosis, 2+ pulses and upper and lower extremities. MUSCULOSKELETAL: Muscle strength and tone normal. SPINE: No scoliosis or deformity SKIN: No rashes CENTRAL NERVOUS SYSTEM: Alert and oriented -3. No focal deficits, tone is normal in all 4 extremities. PSYCHIATRIC: Alert and oriented -3. Appropriate affect. Intact judgment and insight. - Labs CBC & Chem 7: 07/06/20 05:58 07/06/20 05:58 Labs: Abnormal Lab Results - Last 24 Hours (Table) 07/08/20 Range/Units 09:16 D-Dimer 1.31 H (<0.60) mg/L FEU Assessment and Plan Plan: #1. Acute hypoxic respiratory failure related to acute COVID 19 pneumonia, with initial onset of symptoms at 06/22/2020, and positive outpatient Covid test on 07/02/2020 in the walk-in clinic, patient is out of the window for Remdesivir treatment. Status post transfusion of one unit of convalescent plasma and the patient is on Decadrone #2. Fever, nausea and vomiting and diarrhea related to the above #3. Increased inflammatory markers related to the above #4. Never smoker Plan: keep the oxygen at 2 L evaluated for home O2 complete a course of Decadron outpatient basis for a total of 10 days Shortness of breath and coughing has subsided. No fever. No gastrointestinal symptoms for now. Outpatient follow-up regarding a follow-up chest x-ray probably in couple of weeks. Pulmonary critical care services we'll sign off
== END 2020-07-09 11:58 | disposition home or self-care (01) | DRG 177 ==
LOC: EC 02:48 → 4SSUR 04:04 → 1SOBS 15:41
PROVIDERS: ADMIT Internal Medicine; ATTEND Internal Medicine
DX: U07.1 COVID-19 (principal); J12.82 Pneumonia due to coronavirus disease 2019; J96.01 Acute respiratory failure with hypoxia; Z91.030 Bee allergy status; R00.0 Tachycardia, unspecified
CPT/HCPCS: 36415; 71045; 80053; 83605; 83615; 83735; 84100; 85025; 85379; 85610; 85730; 86140; 86850; 86900; 86901; 93005; 96361; 96374; 96375; 99285

== ENCOUNTER 2020-11-09 12:23 | Emergency (ER) | payer BC ==
[2020-11-09] MEDS ORDERED: methylPREDNISolone SOD SUCCI 125 MG/2 ML VIAL IV STA (12:44)
[2020-11-09] MEDS ORDERED: FAMOTIDINE 20 MG/2 ML VIAL IV STA (12:44)
--- NOTE | 2020-11-09 12:47 | ED ---
Allergic Reaction HPI - General Chief complaint: Allergic Reaction Stated complaint: Bee sting, allergic reaction Time Seen by Provider: 11/09/20 12:30 Source: patient, RN notes reviewed Mode of arrival: ambulatory Limitations: no limitations - History of Present Illness Initial Comments: This is a 49-year-old male with a history of bee sting ALLERGIES who states he was stung in the right ear by a bee approximately 1 hour prior to the contact with him. He states he was starting to feel very itchy and started developing hives some chest tightness which still persists. He did take epinephrine pen as well as 50 mg of Benadryl orally. He feeling somewhat better but still has a chest tightness. Also he was told by his family that his voice sounded very raspy. He denies any shortness of breath or palpitations at this time other complaints or modifying factors MD Complaint: allergic reaction - Related Data Home Medications Medication Instructions Recorded Confirmed Albuterol Nebulized [Ventolin 2.5 mg INHALATION RT-Q4H PRN 07/05/20 07/05/20 Nebulized] Previous Rx's Medication Instructions Recorded Ascorbic Acid [Vitamin C] 1,000 mg PO DAILY #60 tab 07/09/20 Cholecalciferol [Vitamin D3 (25 50 mcg PO DAILY #60 tablet 07/09/20 Mcg = 1000 Iu)] Dexamethasone [Decadron] 6 mg PO DAILY #4 tablet 07/09/20 Zinc Sulfate [Orazinc] 220 mg PO DAILY #30 cap 07/09/20 EPINEPHrine (Auto Inject) [Epipen] 0.3 mg IM ONCE PRN #2 pen 11/09/20 methylPREDNISolone Dose Pack 4 mg PO DIRECTED #21 package 11/09/20 [Medrol Dose Pack] Allergies Allergy/AdvReac Type Severity Reaction Status Date / Time venom-honey bee Allergy Anaphylaxis Verified 11/09/20 12:30 [bee venom (honey bee)] Review of Systems ROS Statement: Those systems with pertinent positive or pertinent negative responses have been documented in the HPI. ROS Other: All systems not noted in ROS Statement are negative. Past Medical History Past Medical History: Pneumonia Additional Past Medical History / Comment(s): covid 06/17 History of Any Multi-Drug Resistant Organisms: None Reported Past Surgical History: No Surgical Hx Reported Additional Past Surgical History / Comment(s): Tilt table test, EGD, colonoscopy with benign polypectomy Past Anesthesia/Blood Transfusion Reactions: No Reported Reaction Past Psychological History: No Psychological Hx Reported Smoking Status: Never smoker Past Alcohol Use History: Occasional Past Drug Use History: None Reported - Past Family History Father Family Medical History: Osteoarthritis (OA) Mother Family Medical History: Diabetes Mellitus, Respiratory Disorder Additional Family Medical History / Comment(s): Mother has covid. General Exam - General Exam Comments Initial Comments: This is a well-developed well-nourished awake alert oriented 3 male Limitations: no limitations General appearance: alert, anxious Head exam: Present: atraumatic, normocephalic, normal inspection Eye exam: Present: normal appearance, PERRL, EOMI. Absent: scleral icterus, conjunctival injection, periorbital swelling ENT exam: Present: mucous membranes moist, other (Erythema seen to the right right external ear no evidence of foreign body no drainage mild tenderness palpation. Consistent with a bee sting) Neck exam: Present: normal inspection, full ROM, other. Absent: tenderness, meningismus, lymphadenopathy Respiratory exam: Present: normal lung sounds bilaterally. Absent: respiratory distress, wheezes, rales, rhonchi, stridor Cardiovascular Exam: Present: regular rate, normal rhythm, normal heart sounds. Absent: systolic murmur, diastolic murmur, rubs, gallop, clicks GI/Abdominal exam: Present: soft, normal bowel sounds. Absent: distended, tenderness, guarding, rebound, rigid Extremities exam: Present: normal inspection, full ROM, normal capillary refill. Absent: tenderness, pedal edema, joint swelling, calf tenderness Back exam: Present: normal inspection Neurological exam: Present: alert, oriented X3, CN II-XII intact Psychiatric exam: Present: normal affect, normal mood Skin exam: Present: warm, dry, intact, normal color. Absent: rash Course Vital Signs 11/09/20 12:28 Temperature 97.6 F Pulse Rate 86 Respiratory 20 Rate Blood Pressure 146/97 O2 Sat by Pulse 97 Oximetry Medical Decision Making - Medical Decision Making Patient showing much improved this time we did have a long discussion regarding the findings to be discharged with the usual precautions for ALLERGIC reactions who will be placed on a short course of steroids as well as a EpiPen 2 Domo. Return parameters were discussed - Lab Data Result diagrams: 11/09/20 13:00 11/09/20 13:00 Lab Results 0811/09/20 11/09/20 Range/Units 13:00 13:00 13:00 WBC 8.0 (3.8-10.6) k/uL RBC 4.96 (4.30-5.90) m/uL Hgb 15.3 (13.0-17.5) gm/dL Hct 44.7 (39.0-53.0) % MCV 90.1 (80.0-100.0) fL MCH 30.8 (25.0-35.0) pg MCHC 34.2 (31.0-37.0) g/dL RDW 12.7 (11.5-15.5) % Plt Count 260 (150-450) k/uL MPV 8.5 Neutrophils % (Manual) 79 % Lymphocytes % (Manual) 9 % Monocytes % (Manual) 12 % Neutrophils # (Manual) 6.32 (1.3-7.7) k/uL Lymphocytes # (Manual) 0.72 L (1.0-4.8) k/uL Monocytes # (Manual) 0.96 (0-1.0) k/uL Nucleated RBCs 0 (0-0) /100 WBC Manual Slide Review Performed Poikilocytosis (manual Present Anisocytosis (manual) Present Sodium 137 (137-145) mmol/L Potassium 4.3 (3.5-5.1) mmol/L Chloride 102 (98-107) mmol/L Carbon Dioxide 23 (22-30) mmol/L Anion Gap 12 mmol/L BUN 17 (9-20) mg/dL Creatinine 0.81 (0.66-1.25) mg/dL Est GFR (CKD-EPI)AfAm >90 (>60 ml/min/1.73 sqM) Est GFR (CKD-EPI)NonAf >90 (>60 ml/min/1.73 sqM) Glucose 253 H (74-99) mg/dL Calcium 9.8 (8.4-10.2) mg/dL Magnesium 1.9 (1.6-2.3) mg/dL Total Bilirubin 0.4 (0.2-1.3) mg/dL AST 36 (17-59) U/L ALT 48 (4-49) U/L Alkaline Phosphatase 119 (38-126) U/L Creatine Kinase 58 (55-170) U/L Troponin I <0.012 (0.000-0.034) ng/mL Total Protein 7.5 (6.3-8.2) g/dL Albumin 4.5 (3.5-5.0) g/dL - EKG Data -: EKG Interpreted by Me EKG shows normal: sinus rhythm, axis, intervals, QRS complexes, ST-T waves Rate: normal EKG Comments: Sinus rhythm 83 NJ interval 164 QRS 12 QT since QTC 34/[address]-T wave changes - Radiology Data Radiology results: report reviewed (Imaging reviewed no acute findings.), image reviewed Disposition Clinical Impression: Allergic reaction to insect sting Disposition: HOME SELF-CARE Condition: Good Instructions (If sedation given, give patient instructions): Anaphylaxis (ED) Additional Instructions: Cool compresses, avoid hot environments Prescriptions: EPINEPHrine (Auto Inject) [Epipen] 0.3 mg IM ONCE PRN #2 pen PRN Reason: Anaphylaxis methylPREDNISolone Dose Pack [Medrol Dose Pack] 4 mg PO DIRECTED #21 package Is patient prescribed a controlled substance at d/c from ED?: No Referrals: None,Stated [Primary Care Provider] - 1-2 days
[2020-11-09 13:50] LABS: African American GFR (CKD) >90 (>60 ml/min/1.73 sqM); Albumin 4.5 g/dL (3.5-5.0); Blood Urea Nitrogen 17 mg/dL (9-20); Carbon Dioxide 23 mmol/L (22-30); Non-African American GFR(CKD) >90 (>60 ml/min/1.73 sqM); Total Bilirubin 0.4 mg/dL (0.2-1.3); Total Protein 7.5 g/dL (6.3-8.2)
--- NOTE | 2020-11-09 13:54 | XR ---
EXAMINATION TYPE: XR chest 2V DATE OF EXAM: 11/09/2020 COMPARISON: 07/08/2020 INDICATION: Chest tightness itchy throat rash TECHNIQUE: Frontal and lateral views of the chest are obtained. FINDINGS: The heart size is normal. The pulmonary vasculature is normal. The lungs are clear. IMPRESSION: 1. No acute pulmonary process.
[2020-11-09 13:57] LABS: ALT 48 U/L (4-49); AST 36 U/L (17-59); Alkaline Phosphatase 119 U/L (38-126); Anion Gap 12 mmol/L; Calcium 9.8 mg/dL (8.4-10.2); Chloride 102 mmol/L (98-107); Creatine Kinase 58 U/L (55-170); Glucose 253 mg/dL (74-99); Magnesium 1.9 mg/dL (1.6-2.3); Potassium 4.3 mmol/L (3.5-5.1); Sodium 137 mmol/L (137-145)
[2020-11-09 13:59] LABS: HCT 44.7 % (39.0-53.0); HGB 15.3 gm/dL (13.0-17.5); MCH 30.8 pg (25.0-35.0); MCHC 34.2 g/dL (31.0-37.0); MCV 90.1 fL (80.0-100.0); Mean Platelet Volume 8.5; Platelet Count 260 k/uL (150-450); RBC 4.96 m/uL (4.30-5.90); RDW 12.7 % (11.5-15.5)
[2020-11-09 14:30] LABS: Lymphocytes # (M) 0.72 k/uL (1.0-4.8); Monocytes # (M) 0.96 k/uL (0-1.0); Neutrophils # (M) 6.32 k/uL (1.3-7.7); Neutrophils % (M) 79 %; Nucleated Red Blood Cells 0 /100 WBC (0-0); Total Cells Counted 100
[2020-11-09 14:34] LABS: Anisocytosis (M) Present; Poikilocytosis (M) Present
[2020-11-09 14:46] VITALS: BP 127/88; PULSE 71; RESP 18; TEMP 97.8
== END 2020-11-09 14:46 | disposition home or self-care (01) ==
LOC: EC 12:23
DX: T63.441A Toxic effect of venom of bees, accidental (unintentional), initial encounter (principal); Z91.030 Bee allergy status; Z86.16 Personal history of COVID-19
CPT/HCPCS: 99283; 96374; 96375; 36415; 93005; 80053; 82550; 83735; 84484; 85025; 71046; J2930

== ENCOUNTER 2021-12-25 11:46 | Emergency (ER) | payer BC ==
[2021-12-25 11:52] VITALS: TEMP 98.2
[2021-12-25] MEDS ORDERED: SODIUM CHLORIDE 0.9% 1,000 ML IV STA (11:57)
[2021-12-25] MEDS ORDERED: methylPREDNISolone SOD SUCCI 125 MG/2 ML VIAL IV STA (11:57)
[2021-12-25] MEDS ORDERED: FAMOTIDINE 20 MG/2 ML VIAL IV STA (11:57)
[2021-12-25] MEDS ORDERED: diphenhydrAMINE 50 MG/ML 1 ML VIAL IVP STA (11:57)
[2021-12-25 12:17] VITALS: RESP 18
--- NOTE | 2021-12-25 12:27 | XR ---
EXAMINATION TYPE: XR chest 2V DATE OF EXAM: 12/25/2021 COMPARISON: 11/09/2020 TECHNIQUE: PA and lateral views submitted. HISTORY: Shortness of breath FINDINGS: The lungs are clear and there is no pneumothorax, pleural effusion, or focal pneumonia. Limited insp iration with linear changes in the right perihilar region most of scar or atelectasis. IMPRESSION: 1. No acute process. Linear changes right perihilar region most typical of scar or atelectasis.
--- NOTE | 2021-12-25 14:37 | ED ---
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 Patient states he was stung by a bee in the back of the left knee 45 minutes prior to arrival. He used his EpiPen approximately 30 minutes ago. Patient's states his chest feels a little tight but otherwise he feels well. Denies trouble breathing and swelling of the throat/tongue. - Related Data Previous Rx's Medication Instructions Recorded predniSONE 50 mg PO DAILY #5 tab 12/25/21 Allergies Allergy/AdvReac Type Severity Reaction Status Date / Time venom-honey bee Allergy Anaphylaxis Verified 12/25/21 13:31 [bee venom (honey bee)] Review of Systems ROS Statement: Those systems with pertinent positive or pertinent negative responses have been documented in the HPI. ROS Other: All systems not noted in ROS Statement are negative. Past Medical History Past Medical History: Pneumonia Additional Past Medical History / Comment(s): covid 06/17 History of Any Multi-Drug Resistant Organisms: None Reported Past Surgical History: No Surgical Hx Reported Additional Past Surgical History / Comment(s): Tilt table test, EGD, colonoscopy with benign polypectomy Past Anesthesia/Blood Transfusion Reactions: No Reported Reaction Past Psychological History: No Psychological Hx Reported Smoking Status: Never smoker Past Alcohol Use History: Occasional Past Drug Use History: None Reported - Past Family History Father Family Medical History: Osteoarthritis (OA) Mother Family Medical History: Diabetes Mellitus, Respiratory Disorder Additional Family Medical History / Comment(s): Mother has covid. General Exam Limitations: no limitations General appearance: alert, in no apparent distress Head exam: Present: atraumatic, normocephalic, normal inspection Respiratory exam: Present: normal lung sounds bilaterally. Absent: respiratory distress, wheezes, rales, rhonchi, stridor Cardiovascular Exam: Present: regular rate, normal rhythm, normal heart sounds. Absent: systolic murmur, diastolic murmur, rubs, gallop, clicks Extremities exam: Present: other (bee sting in left medial knee region with minimal swelling ) Course Vital Signs 12/25/21 12/25/2112/25/22 11:48 11:52 12:15 Temperature 98.2 F Pulse Rate 97 Respiratory 20 18 Rate Blood Pressure 141/99 O2 Sat by Pulse 97 Oximetry 12/25/21 15:16 Temperature 98.2 F Pulse Rate 98 Respiratory 18 Rate Blood Pressure 139/92 O2 Sat by Pulse 97 Oximetry - Reevaluation(s) Reevaluation #1: 12/25/21 14:37 Pt sleeping in bed. 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 Patient well-appearing and in no apparent distress. No hypoxia or wheezing. Chest x-ray negative for acute process. Patient given allergy cocktail. He was observed closely in the emergency department for 3 hours and continued to feel well. Vitals remained stable. Patient will be discharged with prednisone that he will start tomorrow. Patient states he has several EpiPen for home. Return parameters discussed. Patient verbalizes understanding and is stable condition for discharge. Dr. Zurita is my attending. 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 Start taking prescription of prednisone tomorrow. Continue Benadryl for any further itching or swelling of the leg. Follow-up with primary care provider in one to 2 days. Return to the emergency department experience new, concerning, or worsening symptoms. Prescriptions: predniSONE 50 mg PO DAILY #5 tab Is patient prescribed a controlled substance at d/c from ED?: No Referrals: None,Stated [Primary Care Provider] - 1-2 days Time of Disposition: 14:55
[2021-12-25 15:17] VITALS: BP 139/92; PULSE 98
== END 2021-12-25 15:17 | disposition home or self-care (01) ==
LOC: EC 11:46
DX: T63.441A Toxic effect of venom of bees, accidental (unintentional), initial encounter (principal); R06.02 Shortness of breath; Z86.16 Personal history of COVID-19; Z91.030 Bee allergy status; Y92.89 Other specified places as the place of occurrence of the external cause
CPT/HCPCS: 71046; 99283; 96374; 96375; 96361; J1200; J2930

== ENCOUNTER 2023-11-29 15:01 | Emergency (ER) | payer BC ==
[2023-11-29 15:16] VITALS: TEMP 98.2
--- NOTE | 2023-11-29 17:04 | XR ---
EXAMINATION TYPE: XR hand complete RT DATE OF EXAM: 11/29/2023 4:41 PM CLINICAL INDICATION: Male, 52 years old with history of right index finger injury; COMPARISON: None TECHNIQUE: XR hand complete RT Frontal, lateral and oblique views were obtained. FINDINGS/IMPRESSION: 1. Soft tissue injury involving the second digit distal phalanx with abnormal morphology to the dist al phalanx suspicious for amputation given history. No radiopaque foreign bodies. 2. Mild multifocal degeneration changes throughout the joints of the hand.
--- NOTE | 2023-11-29 17:05 | ED ---
Wound/Laceration HPI - General Chief Complaint: Wound/Laceration Stated Complaint: Finger Lac Time Seen by Provider: 11/29/23 16:05 Source: patient, RN notes reviewed Mode of arrival: ambulatory Limitations: no limitations - History of Present Illness Initial Comments: 4-year-old male presenting with right index finger injury 3 hours ago. States his finger accidentally became wedged between his generator and he cut the tip of his right finger off. Denies blood thinners. Last tetanus unknown. He is right-hand dominant - Related Data Previous Rx's Medication Instructions Recorded predniSONE 50 mg PO DAILY #5 tab 12/25/21 Cephalexin [Keflex] 500 mg PO Q6HR 10 Days #40 cap 11/29/23 Allergies Allergy/AdvReac Type Severity Reaction Status Date / Time venom-honey bee Allergy Anaphylaxis Verified 11/29/23 15:16 [bee venom (honey bee)] Review of Systems ROS Statement: Those systems with pertinent positive or pertinent negative responses have been documented in the HPI. ROS Other: All systems not noted in ROS Statement are negative. Past Medical History Past Medical History: Pneumonia Additional Past Medical History / Comment(s): covid 06/17 History of Any Multi-Drug Resistant Organisms: None Reported Past Surgical History: No Surgical Hx Reported Additional Past Surgical History / Comment(s): Tilt table test, EGD, colonoscopy with benign polypectomy Past Anesthesia/Blood Transfusion Reactions: No Reported Reaction Past Psychological History: No Psychological Hx Reported Smoking Status: Never smoker Past Alcohol Use History: Occasional Past Drug Use History: None Reported - Past Family History Father Family Medical History: Osteoarthritis (OA) Mother Family Medical History: Diabetes Mellitus, Respiratory Disorder Additional Family Medical History / Comment(s): Mother has covid. General Exam Limitations: no limitations General appearance: alert, in no apparent distress Head exam: Present: atraumatic, normocephalic, normal inspection Right Forearm Wrist exam: Present: normal inspection, full ROM. Absent: tenderness, swelling Hand Wrist exam: Present: tenderness, amputation. Absent: normal inspection (Right second digit: Absent distal phalanx including entirety of nail/nailbed distal to DIP joint. + Active bleeding. DIP ROM intact. Full sensation at distalmost aspect of remaining phalanx. Full radial pulses.), full ROM, swelling Course Vital Signs 11/29/23 11/29/23 15:12 18:38 Temperature 98.2 F Pulse Rate 96 70 Respiratory 16 18 Rate Blood Pressure 163/103 136/80 O2 Sat by Pulse 95 95 Oximetry Procedures - Procedures Initial comment: Digital block performed to right second digit prior to extensive irrigation. Medical Decision Making - Medical Decision Making Was pt. sent in by a medical professional or institution (, [facility], VOICE OVER ANNOUNCER, urgent care, hospital, or alf...) When possible be specific @ -No Did you speak to anyone other than the patient for history (EMS, parent, family, police, friend...)? What history was obtained from this source @ -No Did you review nursing and triage notes (agree or disagree)? Why? @ -I reviewed and agree with nursing and triage notes Were old charts reviewed (outside hosp., previous admission, EMS record, old EKG, old radiological studies, urgent care reports/EKG's, alf records)? Report findings @ -No old charts were reviewed Differential Diagnosis (chest pain, altered mental status, abdominal pain women, abdominal pain men, vaginal bleeding, weakness, fever, dyspnea, syncope, h eadache, dizziness, GI bleed, back pain, seizure, CVA, palpatations, mental health, musculoskeletal)? @ -Differential Musculoskeletal Muscular strain, contusion, ligament sprain, fracture, arthritis, septic arthritis, bursitis, cellulitis, muscle spasm, nerve compression, DVT, arterial occlusion, herpes zoster, electrolyte abnormality, tumor.... This is not meant to be in all inclusive list EKG interpreted by me (3pts min.). @ -None X-rays interpreted by me (1pt min.). @ -X-ray reveals soft tissue injury involving second digit distal phalanx suspicious for amputation CT interpreted by me (1pt min.). @ -None done U/S interpreted by me (1pt. min.). @ -None done What testing was considered but not performed or refused? (CT, X-rays, U/S, labs)? Why? @ -None What meds were considered but not given or refused? Why? @ -None Did you discuss the management of the patient with other professionals (professionals i.e. , [facility], VOICE OVER ANNOUNCER, lab, RT, psych nurse, high school social studies tutor, closed circuit screen watcher, teacher, tactical response group officer, case folder)? Give summary @ -I spoke with Gerardo JOHN from [facility] who recommends attempt at approximation, then dress in gauze and have patient follow-up outpatient with Dr. Kelly. Was smoking cessation discussed for >3mins.? @ -No Was critical care preformed (if so, how long)? @ -No Were there social determinants of health that impacted care today? How? (Homelessness, low income, unemployed, alcoholism, drug addiction, transportation, low edu. Level, literacy, decrease access to med. care, senior care, rehab)? @ -No Was there de-escalation of care discussed even if they declined (Discuss DNR or withdrawal of care, Hospice)? DNR status @ -No What co-morbidities impacted this encounter? (DM, HTN, Smoking, COPD, CAD, Cancer, CVA, ARF, Chemo, Hep., AIDS, mental health diagnosis, sleep apnea, morbid obesity)? @ -None Was patient admitted / discharged? Hospital course, mention meds given and route, prescriptions, significant lab abnormalities, going to OR and other pertinent info. @ -Patient was discharged. Patient was seen and evaluated for right second digit injury 3 hours ago. States the distal aspect of his right second digit was amputated after getting wedged between a generator. Denies blood thinners. Last tetanus unknown. X-ray revealed soft tissue injury involving second digit distal phalanx suspicious for amputation. Findings discussed with patient. Tetanus was updated. Patient was given 2 g Ancef. I spoke with Gerardo JOHN from [facility] who recommends attempt at approximation, then dress in gauze and have patient follow-up outpatient with Dr. Kelly. Attempted approximation with sutures however unable due to condition of injury, as there is too little skin remaining to approximate. Digital nerve block was performed and wound was extensively irrigated. Bacitracin was applied and wound was dressed. Finger splint was placed. Advised to follow-up with Dr. Kelly on Thursday. Return precautions discussed and patient is agreeable to plan. P rescribed Keflex for antibacterial prophylaxis. Case was discussed with my ED attending Dr. Ferguson. Patient discharged in stable condition. Undiagnosed new problem with uncertain prognosis? @ -No Drug Therapy requiring intensive monitoring for toxicity (Heparin, Nitro, Insulin, Cardizem)? @ -No Were any procedures done? @ -Digital block performed, wound was thoroughly irrigated and dressed Diagnosis/symptom? @ -Right second digit amputation of distal phalanx Acute, or Chronic, or Acute on Chronic? @ -Acute Uncomplicated (without systemic symptoms) or Complicated (systemic symptoms)? @ -Uncomplicated Side effects of treatment? @ -No Exacerbation, Progression, or Severe Exacerbation? @ -No Poses a threat to life or bodily function? How? (Chest pain, [place], [place], pneumonia, PE, COPD, DKA, ARF, appy, cholecystitis, CVA, Diverticulitis, Homicidal, Suicidal, threat to staff... and all critical care pts) @ -Not at this time Disposition Clinical Impression: Amputation of right index finger Disposition: HOME SELF-CARE Condition: Stable Instructions (If sedation given, give patient instructions): Finger Amputation (ED) Additional Instructions: Please follow-up with Dr. Kelly [facility] on Thursday. Take Keflex 4 times a day for 10 days. Please return to the Emergency Department if symptoms worsen or any other concerns. Prescriptions: Cephalexin [Keflex] 500 mg PO Q6HR 10 Days #40 cap Is patient prescribed a controlled substance at d/c from ED?: No Referrals: Nonstaff,Physician [Primary Care Provider] - 1-2 days Nae Kelly DO [Doctor of Osteopathic Medicine] - 1-2 days Time of Disposition: 18:43
[2023-11-29] MEDS: KETOROLAC 15 MG/ML 1 ML VIAL IM STA (17:46)
[2023-11-29] MEDS: DIPH,PERTUS(ACELL)TETVAC-LF 0.5 ML VIAL IM ONE (17:47)
[2023-11-29] MEDS: ceFAZolin 1,000 MG VIAL (IM USE) IM STA (17:49)
[2023-11-29] MEDS: LIDOCAINE 1% INJ 10MG/ML (20 ML MDV) SQ ONE (17:50)
[2023-11-29 18:41] VITALS: BP 136/80; PULSE 70; RESP 18
== END 2023-11-29 19:00 | disposition home or self-care (01) ==
LOC: EC 15:01
DX: S68.110A Complete traumatic metacarpophalangeal amputation of right index finger, initial encounter (principal); Z23 Encounter for immunization; W23.1XXA Caught, crushed, jammed, or pinched between stationary objects, initial encounter
CPT/HCPCS: 73130; 90715; 99283; 90471; 96372; 64450; J0690; J1885